=== PATIENT | female | born 1940 | race Caucasian/White ===

== ENCOUNTER 2016-09-19 07:36 | Day surgery (SDC) | payer OTHER ==
[~2016-09-19 07:36] MED LIST: ALEVE220 MG PO; ASA5GR PO; ASAB PO; ATEN50 PO; BENAZEPRIL; BUSPAR5 PO; COREG6 PO; FORTAMET500 MG PO; GLUCOTROL5 PO; GLUCPH PO; HYDROCHLOROTHIAZIDE; LEVEMFLXPN SC; LIPITOR40 PO; LOTE10 PO; LOTE20 PO; LOTENSIN HCT1 TA1 PO; LOTENSIN HCT1 TA2 PO; LOTENSIN HCT1 TA3 PO; NORV5 PO; PAX10 PO; PAXIL40 MG PO; PCET PO; PRILO PO; PRILOSEC40 MG PO; PROBIOTIC; TRULICITY0.75 MG/0. SQ; URSO250 PO; VICTOZA18 MG/3 ML SC; ZOCOR20 PO
== END 2016-09-19 23:59 | disposition home or self-care (01) ==
LOC: SDC 07:36
PROVIDERS: Ophthalmology
PROC: 085J3ZZ Destruction of Right Lens, Percutaneous Approach (ICD-10-PCS; principal; 2016-09-19 10:00)
DX: H26.491 Other secondary cataract, right eye (principal); I10 Essential (primary) hypertension; E78.00 Pure hypercholesterolemia, unspecified; M19.90 Unspecified osteoarthritis, unspecified site; K21.9 Gastro-esophageal reflux disease without esophagitis; K44.9 Diaphragmatic hernia without obstruction or gangrene; E11.43 Type 2 diabetes mellitus with diabetic autonomic (poly)neuropathy; K31.84 Gastroparesis; F32.9 Major depressive disorder, single episode, unspecified; Z88.2 Allergy status to sulfonamides; Z79.82 Long term (current) use of aspirin; Z79.899 Other long term (current) drug therapy; Z90.49 Acquired absence of other specified parts of digestive tract; Z98.890 Other specified postprocedural states; Z86.010 Personal history of colon polyps; Z90.710 Acquired absence of both cervix and uterus; Z85.3 Personal history of malignant neoplasm of breast; Z98.1 Arthrodesis status; Z98.41 Cataract extraction status, right eye; Z98.42 Cataract extraction status, left eye